=== PATIENT | male | born 1955 | race Two or more races ===

== ENCOUNTER 2025-07-05 06:00 | Day surgery (SDC) | payer OTHER ==
[2025-07-05] MEDS ORDERED: DIPHENHYDRAMINE HCL 50 MG/ML VIAL 1ML IV ONE (09:30)
[2025-07-05] MEDS ORDERED: fentaNYL CITRATE 50 MCG/ML AMPUL IV ONE (09:30)
[2025-07-05] MEDS ORDERED: MIDAZOLAM HCL 2 MG/2 ML VIAL IV ONE (09:30)
== END 2025-07-05 10:20 | disposition home or self-care (01) ==
LOC: AMB-ENDOS 06:00
PROVIDERS: ATTEND Surgery
DX: D12.5 Benign neoplasm of sigmoid colon (principal); K63.5 Polyp of colon